=== PATIENT | female | born 1945 | race Caucasian/White ===

== ENCOUNTER 2021-04-08 14:19 | Inpatient (IN) | payer OTHER, BC ==
[2021-04-08 17:12] LABS: LACTIC ACID 2.1 mmol/L (0.4-2.0)
[2021-04-08 17:54] LABS: HEMATOCRIT 38.4 % (32.4-45.2); HEMOGLOBIN 12.9 GM/dL (10.7-15.3); MCH 30.8 pg (25.7-33.7); MCHC 33.5 g/dl (32.0-36.0); MEAN PLT VOLUME 8.6 fl (7.5-11.1); PLATELET COUNT 236 10^3/uL (134-434); RBC 4.18 M/mm3 (3.60-5.2); RDW 14.1 % (11.6-15.6); WHITE BLOOD COUNT 17.9 K/mm3 (4.0-10.0)
[2021-04-08 18:05] LABS: CHLORIDE 104 mmol/L (98-107); SODIUM 138 mmol/L (136-145)
[2021-04-08 18:07] LABS: ANION GAP 9 MMOL/L (8-16); BLOOD UREA NITROGEN 20.2 mg/dL (7-18); CALCIUM 8.8 mg/dL (8.5-10.1); CO2 25 mmol/L (21-32)
[2021-04-08 18:08] LABS: ALBUMIN 3.6 g/dl (3.4-5.0); GLUCOSE,RANDOM 108 mg/dL (74-106)
[2021-04-08 18:11] LABS: SGOT/AST 48 U/L (15-37); SGPT/ALT 50 U/L (13-61)
[2021-04-08 18:12] LABS: BILIRUBIN,TOTAL 0.6 mg/dL (0.2-1); TOT PROT 6.9 g/dl (6.4-8.2)
[2021-04-08 18:13] LABS: ALK PHOS 99 U/L (45-117)
[2021-04-08 18:48] LABS: PLATELET ESTIMATE NORMAL
[2021-04-08 19:12] LABS: EPI CELLS 7 /uL (0-25.1); HYALINE CASTS 3 /uL (0-3.1); URINE APPEARANCE TURBID; URINE BACTERIA >9,000 /uL (0-1359); URINE BILIRUBIN NEGATIVE (NEGATIVE); URINE COLOR YELLOW; URINE GLUCOSE (UA) NEGATIVE (NEGATIVE); URINE KETONE NEGATIVE (NEGATIVE); URINE LEUK ESTERASE 2+ (NEGATIVE); URINE NITRITE POSITIVE (NEGATIVE); URINE PROTEIN NEGATIVE (NEGATIVE); URINE UROBILINOGEN 0.2 mg/dL (0.2-1.0); URINE WBC 556 /uL (0-25.8)
[2021-04-08 19:48] LABS: URINE CRYSTALS 0-2 /hpf; URINE RBC 446.9 /uL (0-23.9)
[2021-04-08 19:49] LABS: YEAST NEGATIVE (NEGATIVE)
[2021-04-08 21:59] LABS: INR 1.21 (0.83-1.09); PROTHROMBIN TIME (PATIENT) 13.6 SEC (9.7-13.0)
[2021-04-08 22:01] LABS: ACTIVATED PTT 27.7 SECONDS (25.2-36.5)
[2021-04-09 01:20] LABS: LACTIC ACID 2.3 mmol/L (0.4-2.0)
[2021-04-09 07:50] LABS: HEMATOCRIT 34.2 % (32.4-45.2); HEMOGLOBIN 11.5 GM/dL (10.7-15.3); MCH 30.7 pg (25.7-33.7); MCHC 33.6 g/dl (32.0-36.0); MEAN CELL VOLUME 91.4 fl (80-96); MEAN PLT VOLUME 8.4 fl (7.5-11.1); PLATELET COUNT 160 10^3/uL (134-434); RBC 3.75 M/mm3 (3.60-5.2); RDW 14.2 % (11.6-15.6); WHITE BLOOD COUNT 15.4 K/mm3 (4.0-10.0)
[2021-04-09 08:18] LABS: BLOOD UREA NITROGEN 30.5 mg/dL (7-18); CALCIUM 8.3 mg/dL (8.5-10.1)
[2021-04-09 08:21] LABS: CREATININE 1.8 mg/dL (0.55-1.3)
[2021-04-09 08:33] LABS: MAGNESIUM 2.1 mg/dL (1.8-2.4)
[2021-04-09 09:07] LABS: ANISOCYTOSIS 1+; MACROCYTOSIS 0; PLATELET ESTIMATE NORMAL
[2021-04-09 10:19] LABS: LACTIC ACID 3.6 mmol/L (0.4-2.0)
[2021-04-09 17:02] LABS: HEMATOCRIT 33.8 % (32.4-45.2); HEMOGLOBIN 11.3 GM/dL (10.7-15.3); MCH 30.5 pg (25.7-33.7); MCHC 33.3 g/dl (32.0-36.0); MEAN CELL VOLUME 91.5 fl (80-96); MEAN PLT VOLUME 8.4 fl (7.5-11.1); PLATELET COUNT 124 10^3/uL (134-434); RBC 3.69 M/mm3 (3.60-5.2); RDW 14.3 % (11.6-15.6); WHITE BLOOD COUNT 19.2 K/mm3 (4.0-10.0)
[2021-04-09 17:30] LABS: CALCIUM 7.7 mg/dL (8.5-10.1)
[2021-04-09 17:31] LABS: BLOOD UREA NITROGEN 33.6 mg/dL (7-18)
[2021-04-09 17:34] LABS: CREATININE 1.7 mg/dL (0.55-1.3)
[2021-04-09 17:35] LABS: BILIRUBIN,TOTAL 0.4 mg/dL (0.2-1); TOT PROT 5.4 g/dl (6.4-8.2)
[2021-04-09 17:59] LABS: ALBUMIN 2.3 g/dl (3.4-5.0); LACTIC ACID 2.5 mmol/L (0.4-2.0)
[2021-04-09 18:13] LABS: ANISOCYTOSIS 2+; MACROCYTOSIS 0; OVALOCYTE 1+; PLATELET ESTIMATE DECREASED
[2021-04-10 07:40] LABS: HEMATOCRIT 31.7 % (32.4-45.2); HEMOGLOBIN 10.7 GM/dL (10.7-15.3); MCH 30.7 pg (25.7-33.7); MCHC 33.8 g/dl (32.0-36.0); MEAN CELL VOLUME 90.7 fl (80-96); PLATELET COUNT 117 10^3/uL (134-434); RBC 3.49 M/mm3 (3.60-5.2); RDW 14.6 % (11.6-15.6); WHITE BLOOD COUNT 17.7 K/mm3 (4.0-10.0)
[2021-04-10 08:00] LABS: BLOOD UREA NITROGEN 31.1 mg/dL (7-18); CALCIUM 7.6 mg/dL (8.5-10.1)
[2021-04-10 08:01] LABS: ALBUMIN 2.1 g/dl (3.4-5.0)
[2021-04-10 08:05] LABS: TOT PROT 4.9 g/dl (6.4-8.2)
[2021-04-10 08:06] LABS: BILIRUBIN,TOTAL 0.4 mg/dL (0.2-1)
[2021-04-10 10:36] LABS: ANISOCYTOSIS 0; MACROCYTOSIS 0; OVALOCYTE 1+; PLATELET ESTIMATE DECREASED; TOXIC GRANULATION 1+
[2021-04-10 10:52] LABS: LACTIC ACID 2.3 mmol/L (0.4-2.0)
[2021-04-10 12:54] VITALS: BMI 32.0
[2021-04-11 07:01] LABS: BASO % 0.3 % (0-2.0); EOS % 0.6 % (0-4.5); HEMATOCRIT 32.1 % (32.4-45.2); HEMOGLOBIN 10.9 GM/dL (10.7-15.3); LYMPH % 10.1 % (8-40); MCH 31.2 pg (25.7-33.7); MEAN CELL VOLUME 91.6 fl (80-96); MEAN PLT VOLUME 9.6 fl (7.5-11.1); MONO % 4.2 % (3.8-10.2); NEUT % 84.8 % (42.8-82.8); PLATELET COUNT 131 10^3/uL (134-434); RBC 3.51 M/mm3 (3.60-5.2); RDW 14.7 % (11.6-15.6); WHITE BLOOD COUNT 17.6 K/mm3 (4.0-10.0)
[2021-04-11 07:20] LABS: CALCIUM 7.5 mg/dL (8.5-10.1)
[2021-04-11 07:21] LABS: BLOOD UREA NITROGEN 13.8 mg/dL (7-18)
[2021-04-11 07:24] LABS: CREATININE 0.7 mg/dL (0.55-1.3)
[2021-04-11 07:26] LABS: BILIRUBIN,TOTAL 0.6 mg/dL (0.2-1); TOT PROT 4.8 g/dl (6.4-8.2)
[2021-04-11 11:18] LABS: ANISOCYTOSIS 1+; MACROCYTOSIS 0; PLATELET ESTIMATE NORMAL
[2021-04-12 08:28] LABS: BASO % 0.4 % (0-2.0); BLOOD UREA NITROGEN 11.3 mg/dL (7-18); CALCIUM 7.7 mg/dL (8.5-10.1); EOS % 2.6 % (0-4.5); HEMATOCRIT 34.5 % (32.4-45.2); LYMPH % 19.3 % (8-40); MCH 31.3 pg (25.7-33.7); MCHC 34.9 g/dl (32.0-36.0); MEAN CELL VOLUME 89.7 fl (80-96); MONO % 9.7 % (3.8-10.2); PLATELET COUNT 166 10^3/uL (134-434); RBC 3.84 M/mm3 (3.60-5.2); RDW 14.6 % (11.6-15.6); WHITE BLOOD COUNT 10.3 K/mm3 (4.0-10.0)
[2021-04-12 08:29] LABS: ALBUMIN 2.3 g/dl (3.4-5.0)
[2021-04-12 08:31] LABS: CREATININE 0.7 mg/dL (0.55-1.3)
[2021-04-12 08:33] LABS: BILIRUBIN,TOTAL 0.5 mg/dL (0.2-1); TOT PROT 5.8 g/dl (6.4-8.2)
[2021-04-12 11:52] LABS: ANISOCYTOSIS 0; MACROCYTOSIS 0; PLATELET ESTIMATE DECREASED
[2021-04-13 07:33] LABS: HEMATOCRIT 34.7 % (32.4-45.2); HEMOGLOBIN 11.9 GM/dL (10.7-15.3); MCH 31.2 pg (25.7-33.7); MCHC 34.3 g/dl (32.0-36.0); MEAN CELL VOLUME 90.8 fl (80-96); MEAN PLT VOLUME 9.3 fl (7.5-11.1); PLATELET COUNT 193 10^3/uL (134-434); RBC 3.82 M/mm3 (3.60-5.2); RDW 14.7 % (11.6-15.6); WHITE BLOOD COUNT 7.8 K/mm3 (4.0-10.0)
[2021-04-13 07:48] LABS: ALBUMIN 2.4 g/dl (3.4-5.0); BLOOD UREA NITROGEN 10.6 mg/dL (7-18); CALCIUM 7.9 mg/dL (8.5-10.1)
[2021-04-13 07:53] LABS: BILIRUBIN,TOTAL 0.6 mg/dL (0.2-1); TOT PROT 5.6 g/dl (6.4-8.2)
[2021-04-13 08:07] LABS: CREATININE 0.5 mg/dL (0.55-1.3)
[2021-04-13 09:01] LABS: ANISOCYTOSIS 1+; MACROCYTOSIS 0; OVALOCYTE 2+; PLATELET ESTIMATE NORMAL
[2021-04-13 15:13] VITALS: BP 113/69; PULSE 85; TEMP 98.2
== END 2021-04-13 15:17 | disposition home or self-care (01) | DRG 853 ==
LOC: JER 14:19 → JERBED 16:55 → J4S 04-09 22:27
PROVIDERS: ATTEND Family Medicine
PROC: 0T768DZ Dilation of Right Ureter with Intraluminal Device, Via Natural or Artificial Opening Endoscopic (ICD-10-PCS; principal; 2021-04-09)
PROC: 0TF68ZZ Fragmentation in Right Ureter, Via Natural or Artificial Opening Endoscopic (ICD-10-PCS; 2021-04-09)
PROC: BT1DZZZ Fluoroscopy of Right Kidney, Ureter and Bladder (ICD-10-PCS; 2021-04-09)
DX: A41.9 Sepsis, unspecified organism (principal); G92.9 Unspecified toxic encephalopathy; N13.6 Pyonephrosis; E87.2 Acidosis; R44.3 Hallucinations, unspecified; N17.9 Acute kidney failure, unspecified; N12 Tubulo-interstitial nephritis, not specified as acute or chronic; D69.6 Thrombocytopenia, unspecified; E03.9 Hypothyroidism, unspecified; I10 Essential (primary) hypertension; E78.5 Hyperlipidemia, unspecified; D72.829 Elevated white blood cell count, unspecified; B96.20 Unspecified Escherichia coli [E. coli] as the cause of diseases classified elsewhere; E66.9 Obesity, unspecified; Z68.32 Body mass index [BMI] 32.0-32.9, adult
CPT/HCPCS: 36415; 70450-TC; 71045-TC-FY; 74177-TC; 76000-TC-FY; 80048; 80053; 81003; 82550; 82962; 83605; 83735; 84439; 84443; 84484; 85025; 85610; 85730; 86850; 86900; 86901; 87040; 87086; 87186; 93005; 93010; 94760; 99285-25; C9803; J0131; Q9967; U0003; U0005

== ENCOUNTER 2021-05-18 04:22 | Day surgery (SDC) | payer OTHER, BC ==
[2021-05-13 15:09] VITALS: BMI 27.1
[2021-05-18] MEDS ORDERED: ACETAMINOPHEN 325 MG TABLET (FP) PO PRN (13:16)
[2021-05-18] MEDS ORDERED: ONDANSETRON 4 MG/2 ML VIAL IVPUSH PRN (13:16)
[2021-05-18] MEDS ORDERED: ONDANSETRON 4 MG/2 ML VIAL IVPB PRN (13:16)
[2021-05-18] MEDS ORDERED: oxyCODONE HCL 5 MG TABLET PO PRN ×2 (13:16)
[2021-05-18] MEDS ORDERED: LACTATED RINGERS SOLUTION 1,000 ML IV SCH (13:30)
[2021-05-18] MEDS ORDERED: MIDAZOLAM HCL 2 MG/2 ML SINGLE DOSE VIAL ONE (13:38)
[2021-05-18 14:56] VITALS: TEMP 98.8
[2021-05-18 15:56] VITALS: BP 130/69; PULSE 85
== END 2021-05-18 15:59 | disposition home or self-care (01) ==
LOC: JASU-SURG 04:22
PROVIDERS: ATTEND Urology
PROC: 0TF3XZZ Fragmentation in Right Kidney Pelvis, External Approach (ICD-10-PCS; principal; 2021-05-18 12:00)
DX: N20.0 Calculus of kidney (principal)

== ENCOUNTER 2024-07-11 15:58 | Inpatient (IN) | payer OTHER, BC ==
[2024-07-11 16:23] VITALS: BMI 27.8
[2024-07-11 17:34] LABS: ABSOLUTE IMMATURE GRANULOCYTES 0.02 x10^3/uL (0.0-0.031); BASOPHILS # 0.04 x10^3/uL (0.01-0.08); EOSINOPHIL % 0.4 % (0.7-5.8); EOSINOPHILS # 0.03 x10^3/uL (0.04-0.36); HEMATOCRIT 38.6 % (34.1-44.9); HEMOGLOBIN 12.5 g/dL (11.2-15.7); MCHC 32.4 g/dl (32.2-35.5); MEAN CELL VOLUME 90.4 fl (79.4-94.8); MEAN PLT VOLUME 10.5 fl (9.4-12.3); MONOCYTE # 0.89 x10^3/uL (0.24-0.86); MONOCYTE % 11.1 % (4.7-12.5); PLATELET COUNT # 222 x10^3/uL (182-369); RDW 14.6 % (12.4-16.6)
[2024-07-11 17:37] LABS: EPI CELLS 27 /uL (0-25.1); HYALINE CASTS 3 /uL (0-3.1); URINE APPEARANCE CLOUDY; URINE BACTERIA 2222 /uL (0-1359); URINE BILIRUBIN NEGATIVE (NEGATIVE); URINE COLOR YELLOW; URINE GLUCOSE (UA) NEGATIVE (NEGATIVE); URINE KETONE NEGATIVE (NEGATIVE); URINE LEUK ESTERASE 3+ (NEGATIVE); URINE NITRITE NEGATIVE (NEGATIVE); URINE PROTEIN 1+ (NEGATIVE); URINE UROBILINOGEN 0.2 mg/dL (0.2-1.0); URINE WBC 827 /uL (0-25.8)
[2024-07-11 17:58] LABS: POTASSIUM 3.6 mmol/L (3.5-5.1)
[2024-07-11 17:59] LABS: URINE RBC 105.3 /uL (0-23.9); YEAST NONE SEEN (NEGATIVE)
[2024-07-11 18:01] LABS: BLOOD UREA NITROGEN 15.5 mg/dL (7-18); CALCIUM 8.7 mg/dL (8.5-10.1)
[2024-07-11 18:02] LABS: ALBUMIN 3.4 g/dl (3.4-5.0)
[2024-07-11 18:05] LABS: CREATININE 0.9 mg/dL (0.55-1.3)
[2024-07-11 18:06] LABS: BILIRUBIN,TOTAL 0.4 mg/dL (0.2-1); TOT PROT 6.5 g/dl (6.4-8.2)
[2024-07-11] MEDS ORDERED: ASPIRIN 81 MG CHEWABLE TABLETS ONE (18:42)
[2024-07-11] MEDS: ASPIRIN 81 MG CHEWABLE TABLETS PO ONE (18:46)
[2024-07-11 18:54] LABS: HCV DIAGNOSTIC IN-HOUSE W/RFLX NON-REACTIVE (NONREACTIVE)
[2024-07-11 18:55] LABS: HIV INTERPRETATION NEGATIVE (NEGATIVE)
[2024-07-11] MEDS ORDERED: ACETAMINOPHEN 325 MG TABLET (FP) PO PRN (19:20)
[2024-07-12] MEDS: DOCUSATE SODIUM 100 MG CAPSULE (FP) PO PRN (07:40)
[2024-07-12 07:48] LABS: ABSOLUTE IMMATURE GRANULOCYTES 0.02 x10^3/uL (0.0-0.031); BASOPHILS # 0.04 x10^3/uL (0.01-0.08); EOSINOPHIL % 0.2 % (0.7-5.8); EOSINOPHILS # 0.01 x10^3/uL (0.04-0.36); HEMATOCRIT 36.5 % (34.1-44.9); MCHC 32.9 g/dl (32.2-35.5); MEAN CELL VOLUME 88.6 fl (79.4-94.8); MEAN PLT VOLUME 10.5 fl (9.4-12.3); MONOCYTE # 1.01 x10^3/uL (0.24-0.86); PLATELET COUNT # 197 x10^3/uL (182-369); RDW 14.8 % (12.4-16.6)
[2024-07-12 08:02] LABS: POTASSIUM 3.3 mmol/L (3.5-5.1)
[2024-07-12 08:10] LABS: ALBUMIN 3.3 g/dl (3.4-5.0); BLOOD UREA NITROGEN 13.4 mg/dL (7-18); CALCIUM 8.1 mg/dL (8.5-10.1)
[2024-07-12 08:13] LABS: CREATININE 0.7 mg/dL (0.55-1.3); PHOSPHOROUS 2.9 mg/dL (2.5-4.9)
[2024-07-12 08:15] LABS: BILIRUBIN,TOTAL 0.4 mg/dL (0.2-1); TOT PROT 6.1 g/dl (6.4-8.2)
[2024-07-12] MEDS: ASPIRIN 81 MG CHEWABLE TABLETS PO SCH (09:59)
[2024-07-12] MEDS: CEFTRIAXONE 1 G/50 ML PREMIX 50 ML IVPB SCH (09:59)
[2024-07-12] MEDS: POTASSIUM CHLORIDE ORAL LIQUID 20 MEQ/15 ML PO ONE (09:59)
[2024-07-12] MEDS: REMDESIVIR 200 MG in SODIUM CHLORIDE 250 ML IVPB ONE (10:45)
[2024-07-12] MEDS: guaiFENesin/CODEINE 10 ML UNIT-DOSE CUPS PO PRN (13:13)
[2024-07-12] MEDS: LEVOTHYROXINE NA 125 MCG TABLET (FP) PO ONE (16:50)
[2024-07-12] MEDS: ROSUVASTATIN CA 5 MG TABLET PO SCH (21:04)
[2024-07-13] MEDS: LEVOTHYROXINE NA 125 MCG TABLET (FP) PO SCH (06:04)
[2024-07-13] MEDS: REMDESIVIR 100 MG in SODIUM CHLORIDE 250 ML IVPB SCH (10:00)
[2024-07-14] MEDS: MELATONIN 5 MG TABLETS PO ONE (20:58)
[2024-07-15 08:42] LABS: HEMATOCRIT 40.7 % (34.1-44.9); HEMOGLOBIN 13.2 g/dL (11.2-15.7); MCHC 32.4 g/dl (32.2-35.5); MEAN CELL VOLUME 88.3 fl (79.4-94.8); MEAN PLT VOLUME 10.3 fl (9.4-12.3); PLATELET COUNT # 220 x10^3/uL (182-369); RDW 14.6 % (12.4-16.6)
[2024-07-15 08:49] LABS: POTASSIUM 4.1 mmol/L (3.5-5.1)
[2024-07-15 08:56] LABS: ALBUMIN 3.1 g/dl (3.4-5.0)
[2024-07-15 08:57] LABS: BLOOD UREA NITROGEN 14.4 mg/dL (7-18); CALCIUM 8.2 mg/dL (8.5-10.1); MAGNESIUM 2.1 mg/dL (1.8-2.4)
[2024-07-15 09:00] LABS: CREATININE 0.6 mg/dL (0.55-1.3)
[2024-07-15 09:02] LABS: BILIRUBIN,TOTAL 0.4 mg/dL (0.2-1); TOT PROT 6.2 g/dl (6.4-8.2)
[2024-07-15] MEDS: PANTOPRAZOLE 20 MG TABLET PO SCH (09:49)
[2024-07-16 08:58] VITALS: BP 109/57; PULSE 80; RESP 16; TEMP 97.5
== END 2024-07-16 14:39 | disposition home or self-care (01) | DRG 178 ==
LOC: JER 15:58 → JERBED 17:42 → J4S 07-12 00:36 → OBSVTOIN 07-13 10:41
PROVIDERS: ADMIT Internal Medicine; ATTEND Family Medicine
PROC: XW033E5 Introduction of Remdesivir Anti-infective into Peripheral Vein, Percutaneous Approach, New Technology Group 5 (ICD-10-PCS; principal; 2024-07-11)
DX: U07.1 COVID-19 (principal); N39.0 Urinary tract infection, site not specified; E03.9 Hypothyroidism, unspecified; E78.5 Hyperlipidemia, unspecified; R94.31 Abnormal electrocardiogram [ECG] [EKG]; R53.1 Weakness; R06.02 Shortness of breath
CPT/HCPCS: 0241U-QW; 36415; 71045-TC-FY; 80053; 81003; 82962; 83735; 84100; 84439; 84443; 84484; 85025; 85027; 86140; 86803; 87086; 87186; 87389; 93005; 93010; 95816; 97116-GP; 97161-GP; 99285-25; G0378; J0248